=== PATIENT | female | born 1970 | race Caucasian/White ===

== ENCOUNTER 2018-02-12 09:15 | Inpatient (IN) | payer OTHER ==
[~2018-02-12] VITALS: Ht 152.4 cm; Wt 63.5 kg
[2018-02-12] MEDS ORDERED: INTEGRA PLUS C1 EACH PO (10:20)
== END 2018-02-15 10:36 | disposition home or self-care (01) | DRG 743 ==
LOC: O/R 02-14 06:00 → SURH 02-14 09:15 → SURG 02-14 20:03 → SURH 02-14 20:45 → SURG 02-15 10:36
PROVIDERS: Obstetrics & Gynecology Gynecologic Oncology
PROC: 0UT64ZZ Resection of Left Fallopian Tube, Percutaneous Endoscopic Approach (ICD-10-PCS; 2018-02-14)
PROC: 0UT94ZZ Resection of Uterus, Percutaneous Endoscopic Approach (ICD-10-PCS; principal; 2018-02-14 20:45)
DX: D25.1 Intramural leiomyoma of uterus (principal); N92.0 Excessive and frequent menstruation with regular cycle